=== PATIENT | male | born 1960 | race Caucasian/White ===

== ENCOUNTER 2017-02-19 20:17 | Emergency (ER) | payer OTHER ==
[~2017-02-19] VITALS: Ht 175.3 cm; Wt 139.2 kg
--- NOTE | ~2017-02-19 | CR20 ---
[facility] A Service of [facility] / [facility] RADIOLOGY TEXT RESULTS PATIENT: SISI ARIAS LOCATION: SED : 64 UNIT #: [id number] AGE: [address]: Leslye Nielsen SEX: M ORDER DR: [id number] [address] [address] [id number] E MR#: [id number] Acc #: [id number] NAME: SISI ARIAS : 1960 SEX: M STUDY DATE/TIME: 02/19/2017 21:41 UNIT: SED ROOM: STUDY DESCRIPTION: CR Ankle Min 3 Views Lt Attending Physician: Leslye Nielsen Pa-C Ordering Physician: Leslye Nielsen Pa-C MEDICAL IMAGING REPORT This report is preliminary unless electronic signature is present. EXAM Left ankle series 02/19/2017. HISTORY Trauma; fell and rolled ankle laterally yesterday. Pain and swelling bilateral sides. TECHNIQUE AP, lateral, and oblique radiographs of the left ankle are presented. FINDINGS Normal bony mineralization. Alignment is normal. No fracture is seen. Well corticated chronic-appearing soft tissue calcifications seen along the medial aspect of medial malleolus and inferior to the lateral malleolus. There is an os trigonum posteriorly along the posterior talus. No joint effusion. Prominent soft tissue swelling medially and laterally, more pronounced adjacent to the lateral malleolus. There is soft tissue swelling, anterior ankle, extending to the dorsum of foot. Clinical followup recommended. There is no soft tissue defect, subcutaneous air, or radiodense foreign body. Dictated by... Jon Wood M.D. THIS IS AN ELECTRONICALLY VERIFIED REPORT Jon Wood M.D. at 02/21/2017 2:44 PM HORACE/ramón TD: 02/20/2017 15:11 JOB #: [id number] [facility] A Service of [facility] RADIOLOGY TEXT RESULTS PATIENT: SISI ARIAS LOCATION: SED : 64 UNIT #: [id number] AGE: [address]: Leslye Nielsen PAC SEX: M ORDER DR: MEDICAL IMAGING REPORT Page 1 of 1
--- NOTE | ~2017-02-19 | CR126 ---
[facility] A Service of [facility] RADIOLOGY TEXT RESULTS PATIENT: SISI ARIAS LOCATION: SED : 64 UNIT #: [id number] AGE: [address]: Leslye Nielsen SEX: M ORDER DR: [id number] [place] [id number] E MR#: [id number] Acc #: [id number] NAME: SISI ARIAS : 1960 SEX: M STUDY DATE/TIME: 02/19/2017 21:41 UNIT: SED ROOM: STUDY DESCRIPTION: CR Foot Complete Min 3 View Lt Attending Physician: Leslye Nielsen Pa-C Ordering Physician: Leslye Nielsen Pa-C MEDICAL IMAGING REPORT This report is preliminary unless electronic signature is present. EXAM Left foot series, 02/19/2017. HISTORY Trauma. Fell and rolled ankle laterally yesterday, pain, swelling bilateral sides. FINDINGS AP, lateral and oblique radiographs of the left foot are presented. No traumatic fracture or malalignment suggested. Os trigonum along the posterior aspect of the talus on lateral view. There is no soft tissue defect, subcutaneous air or radiodense foreign body. There is prominent soft tissue swelling suggested along the medial and lateral aspects of the ankle as well as the anterior aspect of the ankle extending into the dorsum of foot. Dictated by... Jon Wood M.D. THIS IS AN ELECTRONICALLY VERIFIED REPORT Jon Wood M.D. at 02/21/2017 2:44 PM Kacie TD: 02/20/2017 14:45 JOB #: [id number] MEDICAL IMAGING REPORT Page 1 of 1
[~2017-02-19 20:17] MED LIST: BLOOD PRESSURE PO; CLEOCIN PO; DEPRESSION MEDICINE; DOXEPIN HCL150 MG PO; LOW DOSE ASPIRI81 M1 PO
== END 2017-02-19 22:49 | disposition home or self-care (01) ==
LOC: SED 20:17
DX: S93.402A Sprain of unspecified ligament of left ankle, initial encounter (principal); I10 Essential (primary) hypertension; F32.9 Major depressive disorder, single episode, unspecified; F17.210 Nicotine dependence, cigarettes, uncomplicated; Z88.0 Allergy status to penicillin; W18.09XA Striking against other object with subsequent fall, initial encounter; Y92.009 Unspecified place in unspecified non-institutional (private) residence as the place of occurrence of the external cause
CPT/HCPCS: 29540; 73610; 73630; 99283